=== PATIENT | male | born 1935 | race Caucasian/White ===

== ENCOUNTER 2018-04-28 11:38 | Emergency (ER) | payer MEDICARE, OTHER, SELFPAY ==
[2018-04-28 11:43] VITALS: BP 180/88; PULSE 56; RESP 18; TEMP 36.7; O2SAT 100
[2018-04-28 13:18] VITALS: BP 160/73; PULSE 48; RESP 14; O2SAT 100
[2018-04-28 13:20] LABS: Add Manual Diff / Slide Review NO; Basophils Percent Auto 0.7 % (0-2); Eosinophils Percent Auto 0.6 % (2-4); Hematocrit 45.2 % (41-53); Hemoglobin 15.4 g/dL (13.5-17.5); Lymphocytes Percent Auto 7.8 % (25-40); Mean Corpuscular HGB Conc 34.1 % (30-36); Mean Corpuscular Hemoglobin 31.1 PG (26-34); Mean Corpuscular Volume 91.4 fL (80-100); Monocytes Percent Auto 6.9 % (3-14); Neutrophils Absolute Auto 8000 /uL (3000-5900); Platelet Count 182 X10^3/uL (150-400); Red Blood Cell Count 4.95 X10^6/uL (4.5-5.9); Red Cell Distribution Width 13.4 % (11.6-14.8); White Blood Cell Count 9.5 X10^3/uL (4.5-11.0)
[2018-04-28 13:25] LABS: Alanine Aminotransferase 31 IU/L (21-72); Albumin Globulin Ratio 1.4 (1.0-2.8); Alkaline Phosphatase 63 U/L (38-126); Aspartate Aminotransferase 24 IU/L (17-59); BUN Creatinine Ratio 21.1 (6-22); Bilirubin Total 0.8 mg/dL (0.2-1.3); Blood Urea Nitrogen 19 mg/dL (9-20); Calcium 9.1 mg/dL (8.4-10.2); Carbon Dioxide 29 mmol/L (22-32); Chloride 97 mmol/L (98-107); Estimated Glomerular Filt Rate > 60.0 mL/min (>60); Globulin 2.8 g/dL (1.7-4.1); Glucose 106 mg/dL (80-110); HEMOLYSIS < 15 (0-50); Lipase 65 U/L (23-300); Potassium 4.6 mmol/L (3.4-5.1); Sodium 135 mmol/L (137-145); Total Protein 6.8 g/dL (6.3-8.2)
--- NOTE | 2018-04-28 13:45 | DI.CT.S_ITS ---
PROCEDURE: CT KIDNEY URETER BLADDER (KUB) INDICATIONS: left flank pain TECHNIQUE: Noncontrast 5 mm thick sections acquired from the diaphragms to the symphysis. 5 mm thick coronal and sagittal reformats were then performed. For radiation dose reduction, the following was used: automated exposure control, adjustment of mA and/or kV according to patient size. COMPARISON: None. FINDINGS: Image quality: Excellent. Lung bases: Lung bases are clear. Heart size is normal. Urinary system: Both kidneys are normal in size. No kidney stones. No hydronephrosis or perinephric fat stranding. Both ureters appear non-dilated throughout their expected courses. Bladder wall thickness is normal; no calcified bladder stones. Prostate is enlarged. Other solid organs: Liver is normal in size. There is a 6 mm indeterminate nodule in the right hepatic lobe near the liver dome. Gallbladder is normal. Pancreas is normal in contours. Spleen is normal in size. Calcified nodules in spleen are consistent with old granulomas. No adrenal nodules. Peritoneum and bowel: Unenhanced bowel loops demonstrate normal wall thickness and caliber. There are multiple colonic diverticula. No evidence for acute diverticulitis. Moderate amount of stool is present in colon. The appendix is normal. No free fluid or air. Nodes and vessels: No retroperitoneal or mesenteric adenopathy by size criteria. Aorta and inferior vena cava are normal in caliber. Aortic calcification consistent with atherosclerosis Abdominal wall: No ventral hernias. Pelvis: No free pelvic fluid. No inguinal hernias or adenopathy. Bones: No suspicious bony lesions. No vertebral body compression fractures. Scoliosis and degenerative changes in lumbar spine. There is an old or subacute right 11th rib fracture. IMPRESSION: 1. No renal stone or hydronephrosis. 2. Enlarged prostate. 3. Diverticulosis without acute diverticulitis. 4. Moderate amount of stool in colon. 5. Multiple calcified granulomas in spleen. 6. A 6 mm indeterminate low density nodule near the hepatic dome, most likely a cyst. 7. Old or subacute right 11th rib fracture. 8. Scoliosis and degenerative changes in lumbar spine. Dictated by: Chioma Caruso M.D. on 04/28/2018 at 14:18 Approved by: Chioma Caruso M.D. on 04/28/2018 at 14:30
[2018-04-28 15:08] VITALS: BP 141/63; PULSE 48; RESP 13; O2SAT 98
--- NOTE | 2018-04-28 15:26 | ED_ITS ---
HPI - Abdominal Pain General Chief Complaint: Abdominal Pain Stated Complaint: PAIN LOWER LEFT SIDE Time Seen by Provider: 04/28/18 12:27 Source: patient Mode of arrival: ambulatory Limitations: no limitations History of Present Illness HPI narrative: Patient is a 83-year-old male who presents left lower quadrant pain. He has been having left flank pain off and on for about the last week. He said then been constipated. He went to the chiropractor 3 times but has not had any improvement in his back pain. He has no numbness or tingling on his like. It radiates now from his flank to his left lower quadrant. No nausea or vomiting. The pain does come intermittently. Currently not having any pain now. MD complaint: flank pain Onset (ago): week(s) (1) Related Data Home Medications Medication Instructions Recorded Confirmed alendronate 70 mg tablet 70 mg PO MO 04/25/18 04/28/18 aspirin 81 mg tablet,delayed 81 mg PO QPM 04/25/18 04/28/18 release atorvastatin 20 mg tablet 20 mg PO QPM 04/25/18 04/28/18 azelastine 137 mcg (0.1 %) nasal 1 spray NASAL BID PRN 04/25/18 04/28/18 spray aerosol calcium carbonate 500 mg-vitamin 1 tab PO DAILY tab 04/25/18 04/28/18 D3 200 unit-vitamin K2 90 mcg tablet loratadine 10 mg tablet 10 mg PO DAILY 04/25/18 04/28/18 meloxicam 7.5 mg tablet 7.5 mg PO QPM PRN 04/25/18 04/28/18 metoprolol succinate ER 25 mg 50 mg PO QAM 04/25/18 04/28/18 tablet,extended release 24 hr metoprolol succinate 25 mg PO QPM 04/28/18 04/28/18 Allergies Allergy/AdvReac Type Severity Reaction Status Date / Time No Known Drug Allergies Allergy Unverified 04/25/18 11:15 Review of Systems Review of Systems All systems reviewed & are unremarkable except as noted in HPI and below Constitutional Denies chills, Denies fever(s), Denies lethargy and Denies weakness Cardiovascular Denies chest pain, Denies irregular heart rhythm, Denies lightheadedness, Denies palpitations, Denies dyspnea, Denies dyspnea on exertion and Denies orthopnea Respiratory Denies cough, Denies dyspnea, Denies dyspnea on exertion and Denies wheezing Gastrointestinal Gastrointestinal: Reports as per HPI and Reports constipation Genitourinary Reports system reviewed and no additional complaints, except as docu, Reports as per HPI and Reports flank pain Musculoskeletal Reports back pain Neurologic Denies weakness Endocrine Denies palpitations Allergic/Immunologic Denies wheezing PFSH Social History Smoking Status: Never smoker Exam Initial Vital Signs Initial Vital Signs: Vital Signs Temperature 98.1 F 04/28/18 11:43 Pulse Rate 56 L 04/28/18 11:43 Respiratory Rate 18 04/28/18 11:43 Blood Pressure 180/88 H 04/28/18 11:43 Pulse Oximetry 100 04/28/18 11:43 GENERAL: Well-appearing, well-nourished and in no acute distress. HEENT: Head atraumatic,EOMI, pupils reactive, face symmetric, moist mucous membranes CARDIOVASCULAR: Regular rate and rhythm without murmurs, rubs or gallops. RESPIRATORY: Breath sounds equal bilaterally, no wheezes rales or rhonchi. ABDOMEN: Soft, mild left lower quadrant pain no guarding no rebound : No left CVA tenderness EXTREMITIES: Normal range of motion, no clubbing or edema. Neurovascularly intact NEUROLOGICAL: Alert and oriented x4.Normal gait and speech. Cranial nerves II through XII grossly intact. SKIN: Warm, dry, no laceration, no petechiae, no rashes or lesions. Course Orders Ordered: ED Orders 04/28/18 12:30 Complete Blood Count AUTO DIFF Stat Comprehensive Metabolic Panel Stat Lipase Stat 04/28/18 13:45 CT kidney ureter bladder (KUB) Stat Vital Signs - 8 hr 04/28/18 11:43 04/28/18 13:18 04/28/18 15:08 Temperature 98.1 F Pulse Rate 56 L 48 L 48 L Respiratory Rate 18 14 13 Blood Pressure 180/88 H Blood Pressure [Left Arm] 160/73 H 141/63 H Pulse Oximetry 100 100 98 MDM - Abdominal Pain Lab Data Result diagrams: 04/28/18 12:30 04/28/18 12:30 Lab Results 04/28/18 04/28/18 Range/Units 12:30 12:30 WBC 9.5 (4.5-11.0) X10^3/uL RBC 4.95 (4.5-5.9) X10^6/uL Hgb 15.4 (13.5-17.5) g/dL Hct 45.2 (41-53) % MCV 91.4 (80-100) fL MCH 31.1 (26-34) PG MCHC 34.1 (30-36) % RDW 13.4 (11.6-14.8) % Plt Count 182 (150-400) X10^3/uL Neut % (Auto) 84.0 H (50-75) % Lymph % (Auto) 7.8 L (25-40) % [place] % (Auto) 6.9 (3-14) % Eos % (Auto) 0.6 L (2-4) % Baso % (Auto) 0.7 (0-2) % Neut # (Auto) 8000 H (4130-3160) /uL Sodium 135 L (137-145) mmol/L Potassium 4.6 (3.4-5.1) mmol/L Chloride 97 L (98-107) mmol/L Carbon Dioxide 29 (22-32) mmol/L BUN 19 (9-20) mg/dL Creatinine 0.90 (0.66-1.25) mg/dL Estimated GFR > 60.0 (>60) mL/min BUN/Creatinine Ratio 21.1 (6-22) Glucose 106 (80-110) mg/dL Calcium 9.1 (8.4-10.2) mg/dL Total Bilirubin 0.8 (0.2-1.3) mg/dL AST 24 (17-59) IU/L ALT 31 (21-72) IU/L Alkaline Phosphatase 63 (38-126) U/L Total Protein 6.8 (6.3-8.2) g/dL Albumin 4.0 (3.5-5.0) g/dL Globulin 2.8 (1.7-4.1) g/dL Albumin/Globulin Ratio 1.4 (1.0-2.8) Lipase 65 (23-300) U/L Point of care testing: Urine Dip Bedside Urine Glucose Negative Bedside Urine Bilirubin - Negative Bedside Urine Ketone - Negative Urine Specific [place] 1.030 Bedside Urine Occult Blood - Negative Bedside Urine pH 5.5 Bedside Urine Protein - Negative Bedside Urine Urobilinogen - Negative Bedside Urine Nitrite - Negative Bedside Urine Leukocytes - Negative Esterase Imaging Data CT scan - abdomen: Radiologist's impression: PROCEDURE: CT KIDNEY URETER BLADDER (KUB) INDICATIONS: left flank pain TECHNIQUE: Noncontrast 5 mm thick sections acquired from the diaphragms to the symphysis. 5 mm thick coronal and sagittal reformats were then performed. For radiation dose reduction, the following was used: automated exposure control, adjustment of mA and/or kV according to patient size. COMPARISON: None. FINDINGS: Image quality: Excellent. Lung bases: Lung bases are clear. Heart size is normal. Urinary system: Both kidneys are normal in size. No kidney stones. No hydronephrosis or perinephric fat stranding. Both ureters appear non-dilated throughout their expected courses. Bladder wall thickness is normal; no calcified bladder stones. Prostate is enlarged. Other solid organs: Liver is normal in size. There is a 6 mm indeterminate nodule in the right hepatic lobe near the liver dome. Gallbladder is normal. Pancreas is normal in contours. Spleen is normal in size. Calcified nodules in spleen are consistent with old granulomas. No adrenal nodules. Peritoneum and bowel: Unenhanced bowel loops demonstrate normal wall thickness and caliber. There are multiple colonic diverticula. No evidence for acute diverticulitis. Moderate amount of stool is present in colon. The appendix is normal. No free fluid or air. Nodes and vessels: No retroperitoneal or mesenteric adenopathy by size criteria. Aorta and inferior vena cava are normal in caliber. Aortic calcification consistent with atherosclerosis Abdominal wall: No ventral hernias. Pelvis: No free pelvic fluid. No inguinal hernias or adenopathy. Bones: No suspicious bony lesions. No vertebral body compression fractures. Scoliosis and degenerative changes in lumbar spine. There is an old or subacute right 11th rib fracture. IMPRESSION: 1. No renal stone or hydronephrosis. 2. Enlarged prostate. 3. Diverticulosis without acute diverticulitis. 4. Moderate amount of stool in colon. 5. Multiple calcified granulomas in spleen. 6. A 6 mm indeterminate low density nodule near the hepatic dome, most likely a cyst. 7. Old or subacute right 11th rib fracture. 8. Scoliosis and degenerative changes in lumbar spine. Dictated by: Chioma Caruso M.D. on 04/28/2018 at 14:18 MDM Narrative Medical decision making narrative: The patient has no sign of infection no kidney stone. He does have a moderate amount of stool and likely an old rib fracture which he is nontender at I discussed all findings with the patient. Education has been performed regarding treatment plan, diagnosis, warning signs and symptoms and all concerns have been addressed. Verbally agree with and understood all of the above. Discharge Plan Departure Patient Disposition: Home, Self-Care Clinical Impression: Abdominal pain Discharge Date/Time: 04/28/18 15:37 Interventions: ED Discharge Assessment Last Done: 04/28/18 15:36 Activity Restrictions/Additional Instructions: *You have been diagnosed with abdominal pain *What to do: Blood work CT scan here do not show any acute process. Recommend hydration with water and high-fiber diet including lots of fruits and vegetables *Continue to take medications as directed *Follow up with your primary care provider in 2-3 days *Return to ER if you should have increasing abdominal pain persistent vomiting or any new, worsening or concerning symptoms Prescriptions: No Action atorvastatin 20 mg tablet 20 mg PO QPM RF: 0 alendronate [Fosamax] 70 mg tablet 70 mg PO MO RF: 0 aspirin [Adult Low Dose Aspirin] 81 mg tablet,delayed release (DR/EC) 81 mg PO QPM RF: 0 meloxicam 7.5 mg tablet 7.5 mg PO QPM PRN (Reason: Inflammation) RF: 0 metoprolol succinate 25 mg tablet extended release 24 hr 50 mg PO QAM RF: 0 azelastine 137 mcg (0.1 %) aerosol,spray 1 spray NASAL BID PRN (Reason: Allergy Symptoms) RF: 0 loratadine [Allergy Relief (loratadine)] 10 mg tablet 10 mg PO DAILY RF: 0 calcium carb-vitamin D3-vit K2 500 mg calcium- 200 unit-90 mcg tablet 1 tab PO DAILY RF: 0 metoprolol succinate 25 mg tablet extended release 24 hr 25 mg PO QPM RF: 0 Referrals: Arnulfo Kumar MD [Primary Care Provider] -
== END 2018-04-28 15:37 | disposition home or self-care (01) ==
PROVIDERS: Emergency Provider Emergency Medicine
DX: R10.9 Unspecified abdominal pain (principal)
CPT/HCPCS: 36591; 74176; 80053; 81003; 83690; 85025; 99282; 99284

== ENCOUNTER → 2019-04-05 11:43 | Outpatient (CLI) | payer MEDICARE, OTHER, SELFPAY ==
--- NOTE | 2019-04-05 12:03 | DI.CT.S_ITS ---
PROCEDURE: CT SINUS SCREEN WO CON INDICATIONS: CHRONIC SINUSITIS TECHNIQUE: Noncontrast 3.0 mm axial images acquired from the frontal sinuses to the mid-sella, with coronal and sagittal reformats. For radiation dose reduction, the following was used: automated exposure control, adjustment of mA and/or kV according to patient size. COMPARISON: None. FINDINGS: Image quality: Excellent. Maxillary Sinuses: No bony remodeling or destruction. Mucosal thickening is seen within the inferior right maxillary sinus. Ethmoid Air Cells: No bony remodeling or destruction. [id number] mucosal thickening can be seen within the ethmoid air cells, left more prominent right. Sphenoid Sinuses: No bony remodeling or destruction. Sinuses are clear. Frontal Sinuses: No bony remodeling or destruction. Sinuses are clear. Ostiomeatal Complexes: Ostiomeatal complexes are patent. No Kamila cells. Miscellaneous: Visualized intra-orbital contents are normal. No star bullosa or paradoxical turbinate curvature. There is minimal leftward nasal septal deviation. IMPRESSION: Paranasal sinus disease is seen, which is most prominent involving the left ethmoid air cells. Dictated by: Oni Elizondo M.D. on 04/05/2019 at 12:02 Approved by: Oni Elizondo M.D. on 04/05/2019 at 12:03
== END ==
PROVIDERS: PCP Family Medicine; Visit Provider Otolaryngology
DX: J32.8 Other chronic sinusitis (principal); R51 Headache; J34.89 Other specified disorders of nose and nasal sinuses
CPT/HCPCS: 70486

== ENCOUNTER → 2020-11-06 14:32 | Outpatient (CLI) | payer MEDICARE, OTHER, SELFPAY ==
--- NOTE | 2020-11-06 14:34 | DI.RAD.S_ITS ---
PROCEDURE: XR DEXA AXIAL SKELETON INDICATIONS: Other specified disorders of bone density and stru COMPARISON: None. FINDINGS: This blank DEXA report has been sent in error by the PACS system. The correct and complete report will be forthcoming in 1-2 days. Thank you for your patience and understanding. Dictated by: Clare Orr MD, PhD on 11/06/2020 at 17:10 Approved by: Clare Orr MD, PhD on 11/06/2020 at 17:10
== END ==
PROVIDERS: PCP Family Medicine; Referring Provider Internal Medicine; Visit Provider Internal Medicine
DX: M85.80 Other specified disorders of bone density and structure, unspecified site; R29.890 Loss of height; M81.0 Age-related osteoporosis without current pathological fracture
CPT/HCPCS: 77080

== ENCOUNTER → 2022-06-09 13:23 | Outpatient (CLI) | payer MEDICARE, OTHER, SELFPAY ==
--- NOTE | 2022-06-09 13:27 | DI.RAD.S_ITS ---
PROCEDURE: XR CHEST 2V INDICATIONS: COVID +, CP TECHNIQUE: 2 views of the chest were acquired. COMPARISON: None. FINDINGS: Surgical changes and devices: Left chest battery device anterior to the ribs.. Lungs and pleura: Lungs are clear. No pleural effusions or pneumothorax. Mediastinum: Mediastinal contours are normal. Heart size is normal. Bones and chest wall: No suspicious bony abnormalities. Soft tissues appear unremarkable. IMPRESSION: No evidence acute pulmonary process. Dictated by: Benjamin Mendoza M.D. on 06/09/2022 at 14:18 Approved by: Benjamin Mendoza M.D. on 06/09/2022 at 14:19
== END ==
PROVIDERS: PCP Family Medicine; Referring Provider Student in an Organized Health Care Education/Training Program; Visit Provider Student in an Organized Health Care Education/Training Program
DX: R07.1 Chest pain on breathing (principal); U07.1 COVID-19
CPT/HCPCS: 71046

== ENCOUNTER → 2023-09-23 15:14 | Outpatient (CLI) | payer MEDICARE, OTHER, SELFPAY ==
--- NOTE | 2023-09-23 | DI.MRI.S_ITS ---
PROCEDURE: MR BRAIN (IAC) WWO CON INDICATIONS: HEARING LOSS, TINNITUS OF LEFT EAR TECHNIQUE: Noncontrast sagittal T1 spin echo, axial FLAIR, axial gradient echo, axial diffusion and ADC through the brain. Axial thin-slice 3D CISS, coronal TruFISP, axial T1 spin echo with fat saturation through the internal auditory canals. After the administration of contrast, thin slice axial and coronal T1 spin echo with fat saturation through the internal auditory canals, and axial and coronal and sagittal T1 spin echo with fat saturation through the brain. COMPARISON: None. FINDINGS: Image quality: Excellent. Cerebellopontine angles: No cerebellopontine angle masses. Inner ear structures appear normally formed. No suspicious enhancement in the internal auditory canal or along the course of the 7th cranial nerve. CSF spaces: Ventricles are normal in size and shape. No extra-axial fluid collections. Basal cisterns are patent. Brain: No intracranial bleeds or mass effects. Reeder-white matter interface is intact. No abnormal intracranial enhancement. Diffusion weighted images demonstrate no acute ischemic insults. Brainstem appears normal. Normal intravascular flow voids are present. Note is made of age-appropriate brain parenchymal volume loss and chronic small vessel ischemic changes. Skull and face: Calvarial marrow signal is normal. Orbits appear normal. Sinuses: Sinuses and mastoids are clear. IMPRESSION: No significant abnormality is seen. Specifically, no masses or abnormal enhancement are seen within the cerebellopontine angle cisterns or within the internal auditory canals. Dictated by: Oni Elizondo M.D. on 09/23/2023 at 17:21 Approved by: Oni Elizondo M.D. on 09/23/2023 at 17:23
== END ==
PROVIDERS: PCP Family Medicine; Referring Provider Otolaryngology; Visit Provider Otolaryngology
DX: H93.12 Tinnitus, left ear (principal); H90.3 Sensorineural hearing loss, bilateral; H93.8X2 Other specified disorders of left ear
CPT/HCPCS: 70553

== ENCOUNTER → 2025-07-22 11:00 | Outpatient (CLI) | payer MEDICARE, OTHER, SELFPAY ==
[2025-07-22 12:07] LABS: Add Manual Diff / Slide Review NO; Hematocrit 42.8 % (41-53); Hemoglobin 14.8 g/dL (13.5-17.5); Lymphocytes Absolute Auto 800 /uL (1100-4500); Mean Corpuscular HGB Conc 34.5 % (30-36); Mean Corpuscular Hemoglobin 32.1 PG (26-34); Mean Corpuscular Volume 93.0 fL (80-100); Platelet Count 194 X10^3/uL (150-400)
[2025-07-22 12:33] LABS: Blood Urea Nitrogen 27 mg/dL (9-20); Calcium 9.0 mg/dL (8.4-10.2); Carbon Dioxide 25 mmol/L (22-32); Chloride 103 mmol/L (98-107); Estimated Glomerular Filt Rate > 60 mL/min (>60); Glucose 98 mg/dL (70-99); HEMOLYSIS 28 (0-50); Potassium 5.0 mmol/L (3.4-5.1); Sodium 135 mmol/L (137-145)
== END ==
PROVIDERS: PCP Family Medicine; Referring Provider Internal Medicine Cardiovascular Disease; Visit Provider Internal Medicine Cardiovascular Disease
DX: I48.0 Paroxysmal atrial fibrillation (principal)
CPT/HCPCS: 36415; 80048; 85025